=== PATIENT | female | born 1945 | race Two or more races ===

== ENCOUNTER 2024-06-20 15:23 | Emergency (ER) | payer OTHER ==
[~2024-06-20] VITALS: Ht 154.9 cm; Wt 65.9 kg
[2024-06-20 17:28] LABS: Basophils # (auto) 0.1 10 ^3/uL (0-0.2); Basophils % (auto) 0.7 % (0.0-2.0); Eosinophils # (auto) 0.2 10 ^3/uL (0-0.8); Eosinophils % (auto) 2.2 % (0.0-7.0); Hematocrit 41.5 % (36.0-46.0); Lymphocytes # (auto) 1.3 10 ^3/uL (0.4-5.4); Lymphocytes % (auto) 17.1 % (10.0-50.0); Mean Corpuscular Hemoglobin 30.4 pg (28.0-32.0); Mean Corpuscular Hgb Conc. 33.8 g/dL (32.0-36.0); Mean Corpuscular Volume 89.9 fL (80.0-100.0); Monocytes # (auto) 0.5 10 ^3/uL (0-1.3); Monocytes % (auto) 7.2 % (0.0-12.0); Neutrophils # (auto) 5.5 10 ^3/uL (1.6-8.6); Neutrophils % (auto) 72.8 % (37.0-80.0); Platelet Count (auto) 325 10^3/uL (140-450); Red Blood Cells 4.62 10^6/uL (4.0-5.20); Red Cell Distribution Width 14.2 % (11.8-14.3); White Blood Cell 7.6 10^3/uL (4.4-10.8)
[2024-06-20 17:46] LABS: Alanine Aminotransferase 10 U/L (7-40); Alkaline Phosphatase 103 U/L (46-116); Anion Gap 6 (5-15); BUN/Creatinine Ratio 19.1 (10.0-20.0); Blood Urea Nitrogen 18 mg/dL (9-23); Carbon Dioxide 28 mmol/L (20-31); Glucose 83 mg/dL (74-106); Potassium 4.3 mmol/L (3.5-5.1); Sodium 144 mmol/L (136-145)
[2024-06-20 17:47] LABS: Albumin 4.2 g/dL (3.2-4.8); Bilirubin, Total 0.7 mg/dL (0.2-1.0); Total Protein 6.7 g/dL (5.7-8.2)
[2024-06-20 18:13] LABS: Aspartate Aminotransferase 12 U/L (13-40); Chloride 110 mmol/L (98-107)
[2024-06-20 21:13] LABS: Urine Bacteria MANY /hpf (None Seen); Urine Blood TRACE /uL (Negative); Urine Clarity Turbid (Clear); Urine Color Yellow (Yellow); Urine Mucus FEW (None Seen); Urine Protein, UAD TRACE (Negative); Urine Specific Gravity 1.026 (1.001-1.035); Urine Squamous Epithelial Cell FEW /hpf (<5); Urine Urobilinogen 2 mg/dL (Negative); Urine WBC 21 /hpf (0 - 5); Urine pH 5.5 (5.0-9.0)
--- NOTE | 2024-06-20 21:50 | ED.PDOC ---
General HPI Comments 79Y F with PMHx Alzheimer's presents to ED via EMS for chief complaint urinary symptoms. Per EMS, pt was sent by Leticia [facility] for possible UTI. No further information available. VSS upon ED arrival. Chief Complaint: Urinary Time Seen by MD: 16:45 Reviewed notes: Nurses Notes, Fruit Buying Grader Notes, Medications, Allergies Home Meds Active Scripts Cephalexin (KEFLEX CAPSULE) 250 Mg Cp, 1 CAP PO QID for 7 Days, #28 CAP Prov:ELLA OSBORNE PAC 06/20/24 Information Source: Patient, Emergency Med Personnel Mode of Arrival: EMS Brought in by: EMS Severity: Mild Timing: Hours Duration: Since onset Prehospital treatment: Accucheck Onset: Spontaneous Symptoms: Other History of: Other Modifying factors: None associated signs and symptoms: Other Past Medical History PAST MEDICAL HISTORY: Alzheimer Surgical History: Unobtainable SURVEILLANCE CAMERA TECHNICIAN History: No Pertinent SURVEILLANCE CAMERA TECHNICIAN History Family History Family History: Unknown Social History Smoker: Unknown Alcohol: Unknown Drugs: Unknown Lives In: Assisted Care Constitutional: denies: chills, diaphoresis, fatigue, fever, malaise, sweats, weakness, others EENTM: denies: blurred vision, double vision, ear bleeding, ear discharge, ear drainage, ear pain, ear ringing, eye pain, eye redness, hearing loss, mouth pain, mouth swelling, nasal discharge, nose bleeding, nose congestion, nose pain, photophobia, tearing, throat pain, throat swelling, voice changes, others Respiratory: denies: cough, hemoptysis, orthopnea, SOB at rest, shortness of breath, SOB with excertion, stridor, wheezing, others Cardiovascular: denies: chest pain, dizzy spells, diaphoresis, Dyspnea on exertion, edema, irregular heart beat, left arm pain, lightheadedness, palpitations, PND, syncope, others Gastrointestinal: denies: abdomen distended, abdominal pain, blood streaked bowels, constipated, diarrhea, dysphagia, difficulty swallowing, hematemesis, melena, nausea, poor appetite, poor fluid intake, rectal bleeding, rectal pain, vomiting, others Genitourinary: denies: abnormal vagina bleeding, burning, dyspareunia, dysuria, flank pain, frequency, hematuria, incontinence, pain, , vagina discharge, urgency, others Neurological: denies: dizziness, fainting, headache, left sided numbness, left sided weakness, numbness, paresthesia, pre-existing deficit, right sided numbness, right sided weakness, seizure, speech problems, tingling, tremors, weakness, others Musculoskeletal: denies: back pain, gout, joint pain, joint swelling, muscle pain, muscle stiffness, neck pain, others Integumetry: denies: bruises, change in color, change in hair/nails, dryness, laceration, lesions, lumps, rash, wounds, others Allergic/Immunocompromised: denies: Difficulty Healing, Frequent Infections, Hives, Itching, others Hematologic/Lymphatic: denies: anemia, blood clots, easy bleeding, easy bruising, swollen glands, others Endocrine: denies: excessive hunger, excessive sweating, excessive thirst, excessive urination, flushing, intolerance to cold, intolerance to heat, unexplained weight gain, unexplained weight loss, others Psychiatric: denies: anxiety, bipolar disorder, depression, hopeless, panic disorder, schizophrenia, sleepless, suicidal, others Unable to Obtain due to: Dementia All Other Systems: Reviewed and Negative Physical Exam General Appearance: No Apparent Distress (Patient has been as Alzheimer's and is nonverbal.), Normal HEENT: Normal ENT Inspection, Pharynx Normal, TMs Normal Neck: Full Range of Motion, Non-Tender, Normal, Normal Inspection Respiratory: Chest Non-Tender, Lungs Clear, No Accessory Muscle Use, No Respiratory Distress, Normal Breath Sounds Cardiovascular: No Edema, No JVD, No Murmur, No Gallop, Normal Peripheral Pulses, Regular Rate/Rhythm Breast Exam: Deferred Gastrointestinal: No Pulsatile Mass, Normal Bowel Sounds, Soft Genitalia: Deferred Pelvic: Deferred Rectal: Deferred Extremities: Normal capillary refill, No pedal edema Musculoskeletal : Apperance: Normal Neurologic: Motor Weakness, Other (Advanced Alzheimer's) Cerebellar Function: NOT DONE Reflexes: NOT DONE Skin: Dry, Normal Color, Warm Lymphatic: No Adenopathy Was a procedure done? Was a procedure done?: No Differential Diagnosis Kidney stone (Female): Urolithiasis, Other (UTI) Kidney stone (Male): N/A Penile/Scrotal: N/A Urinary Problem (Male): N/A Urinary Problem (Female): UTI X-Ray, Labs, Meds, VS Vital Signs Date Time Temp Pulse Resp B/P (MAP) Pulse Ox O2 Delivery O2 Flow Rate FiO2 06/20/24 21:35 70 16 109/49 (69) 95 06/20/24 20:51 Room Air* 0 21 06/20/24 15:50 98.5 55 16 126/67 (86) 95 Lab Test 06/20/24 20:30 06/20/24 19:52 06/20/24 17:09 Range/Units Urine Color Yellow Yellow Urine Clarity Turbid H Clear Urine pH 5.5 5.0-9.0 Urine Specific [place] 1.026 1.001-1.035 Urine Protein Trace H Negative Urine Ketones 1+ H Negative Urine Blood Trace H Negative /uL Urine Nitrite 2+ H Negative Urine Bilirubin Negative Negative Urine Urobilinogen 2 H Negative mg/dL Urine Leukocyte Esterase 2+ Negative /uL Urine RBC 2 0 - 4 /hpf Urine WBC 21 0 - 5 /hpf Urine Squamous Epithelial Cells Few <5 /hpf Urine Bacteria Many H None Seen /hpf Urine Mucus Few None Seen Urine Glucose Normal Normal mg/dL Troponin I High Sensitivity 7 8 </=34 ng/L White Blood Count 7.6 4.4-10.8 10^3/uL Red Blood Count 4.62 4.0-5.20 10^6/uL Hemoglobin 14.0 12.2-16.2 g/dL Hematocrit 41.5 36.0-46.0 % Mean Corpuscular Volume 89.9 80.0-100.0 fL Mean Corpuscular Hemoglobin 30.4 28.0-32.0 pg Mean Corpuscular Hemoglobin Concent 33.8 32.0-36.0 g/dL Red Cell Distribution Width 14.2 11.8-14.3 % Platelet Count 325 140-450 10^3/uL Mean Platelet Volume 9.2 6.9-10.8 fL Neutrophils (%) (Auto) 72.8 37.0-80.0 % Lymphocytes (%) (Auto) 17.1 10.0-50.0 % Monocytes (%) (Auto) 7.2 0.0-12.0 % Eosinophils (%) (Auto) 2.2 0.0-7.0 % Basophils (%) (Auto) 0.7 0.0-2.0 % Neutrophils # (Auto) 5.5 1.6-8.6 10 ^3/uL Lymphocytes # (Auto) 1.3 0.4-5.4 10 ^3/uL Monocytes # (Auto) 0.5 0-1.3 10 ^3/uL Eosinophils # (Auto) 0.2 0-0.8 10 ^3/uL Basophils # (Auto) 0.1 0-0.2 10 ^3/uL Nucleated Red Blood Cells 0.0 % Sodium Level 144 136-145 mmol/L Potassium Level 4.3 3.5-5.1 mmol/L Chloride Level 110 H 98-107 mmol/L Carbon Dioxide Level 28 20-31 mmol/L Anion Gap 6 5-15 Blood Urea Nitrogen 18 9-23 mg/dL Creatinine 0.94 0.550-1.02 mg/dL Glomerular Filtration Rate Calc 62 >90 mL/min BUN/Creatinine Ratio 19.1 10.0-20.0 Serum Glucose 83 74-106 mg/dL Lactic Acid Level 0.8 0.4-2.0 mmol/L Calcium Level 10.0 8.7-10.4 mg/dL Total Bilirubin 0.7 0.2-1.0 mg/dL Aspartate Amino Transferase (AST) 12 L 13-40 U/L Alanine Aminotransferase (ALT) 10 7-40 U/L Alkaline Phosphatase 103 46-116 U/L B-Type Natriuretic Peptide 115.41 0-100 pg/mL Total Protein 6.7 5.7-8.2 g/dL Albumin 4.2 3.2-4.8 g/dL Current Medications Medications (Trade) Dose Ordered Sig/Luis Antonio Route Start Time Stop Time Status Last Admin Cephalexin (Keflex Capsule) 500 mg ONCE ONCE PO 06/20/24 22:15 06/20/24 22:16 DC 06/20/24 22:29 X-Ray, Labs, Meds, VS Comment All studies performed the ED were evaluated by me personally. Serum studies were unremarkable but urinalysis confirmed a UTI. Patient was given 1st dose of antibiotics prior to discharge back to facility. Advised patient complete antibiotics as directed. Discussed case with [place] distribution sales representative Dr. Aburto. Advised him of laboratory findings. He will follow up with the primary care provider and advised upon the patient's ED visit today. Authorization number [id number]. Time of 1ST Reevaluation: 22:52 Reevaluation 1ST: Improved Consultation: PCP Patient Education/Counseling: Diagnosis, Treatment Family Education/Counseling: Diagnosis, Treatment, No Family Present Departure 1 Departure Time of Disposition: 22:53 Impression: Primary Impression: Urinary tract infection Disposition: 03 LONG-TERM FACILITY Condition: Fair Additional Instructions: Advised patient utilize antibiotics as directed until completion. e-Prescriptions Cephalexin (KEFLEX CAPSULE) 250 Mg Cp 1 CAP PO QID for 7 Days, #28 CAP Prov: ELLA OSBORNE PAC 06/20/24 Discharged With: Self Critical Care Note Critical Care Time?: No Stability Stability form required: No Heart Score Heart Score: Heart Score Response (Comments) Value History N/A 0 EKG N/A 0 Age N/A 0 Risk Factors N/A 0 Troponin N/A 0 Total 0 I personally scribed for ELLA OSBORNE PAC ([email or web address]) on 06/20/24 at 21:50. Electronically submitted by Shelley Jain ([email or web address]). ELLA OSBORNE PAC Jun 20, 2024 21:50
[2024-06-20] MEDS: CEPHALEXIN 250 MG CAP PO ONE (22:29)
[2024-06-20] MEDS ORDERED: CEPH250C PO (22:53)
[2024-06-21 05:23] VITALS: PULSE 68; RESP 18; O2SAT 93
[2024-06-21 07:51] VITALS: BP 150/86; TEMP 98.6
[2024-06-21 07:55] VITALS: PULSE 84; RESP 16; O2SAT 96
[2024-06-22] MEDS ORDERED: LISI10TA34 (22:38)
[2024-06-22] MEDS ORDERED: ESCI1TAB36 (22:38)
[2024-06-22] MEDS ORDERED: TRAZ-227 (22:38)
[2024-06-22] MEDS ORDERED: DONE5TAB80 (22:38)
--- NOTE | 2024-06-23 09:54 | ECG ---
[facility] Test Date: 2024-06-21 Test Time: 15:25:15 Pat Name: ZAIN SMITH Department: ER Room: Gender: F [employer]isher: JOHN : 1945 Requested By: ELLA OSBORNE Order Number: [id number] Reading MD: Measurements Intervals [place] Rate: 60 P: 71 OH: 150 QRS: 73 QRSD: 100 T: 79 QT: 452 QTc: 452 Interpretive Statements Sinus rhythm Low voltage, precordial leads Abnormal R-wave progression, early transition Please click the below link to view image of tracing.
== END 2024-06-21 09:10 | disposition home or self-care (01) ==
LOC: ER 15:23 → EDBD 15:23 → ER 06-21 09:10
DX: N39.0 Urinary tract infection, site not specified (principal); G30.9 Alzheimer's disease, unspecified
CPT/HCPCS: 36415; 80053; 81001; 83605; 83880; 84484; 85025; 93005

== ENCOUNTER 2024-06-21 15:12 | Inpatient (IN) | payer OTHER ==
[~2024-06-21] VITALS: Ht 154.9 cm; Wt 76.6 kg
[~2024-06-21 15:12] MED LIST: CEPH250C PO
--- NOTE | 2024-06-21 16:12 | ED.PDOC ---
History of Present Illness HPI Comments altered mental status per SNF staff Chief Complaint: ALOC Comments pt was discharge this morning for uti. SNF staff felt pt is less oriented than usual. she has a history of dementia. paramedics report pt was more confused on their arrival. BS normal. on arrival here, she is much more alert, similar to yesterday, when they ran on her. pt denies any complaints Time Seen by MD: 15:56 Reviewed Notes: Nurses Notes, Environmental Law Professor Notes, Medications, Allergies Allergies: Coded Allergies: NO KNOWN ALLERGIES (Unverified , 06/21/24) Home Meds Active Scripts Cephalexin (KEFLEX CAPSULE) 250 Mg Cp, 1 CAP PO QID for 7 Days, #28 CAP Prov:ELLA OSBORNE PAC 06/20/24 Information Source: Patient, Emergency Med Personnel Mode of Arrival: EMS Severity: Mild Timing: Hours Duration: Intermittent Past Medical History PAST MEDICAL HISTORY: Alzheimer Surgical History: Unobtainable PATIENT CARE NURSING ASSISTANT History: No Pertinent PATIENT CARE NURSING ASSISTANT History Family History Family History: Unknown Social History Smoker: Unknown Alcohol: Unknown Drugs: Unknown Lives In: Assisted Care Unable to Obtain due to: Dementia Physical Exam General Appearance: No Apparent Distress, Normal, Other (pt appears well, alert, denies all complaints. she knows she is at the hospital, but does not know why) HEENT: Normal ENT Inspection, Pharynx Normal, TMs Normal Neck: Full Range of Motion, Non-Tender, Normal, Normal Inspection Respiratory: Chest Non-Tender, Lungs Clear, No Accessory Muscle Use, No Respiratory Distress, Normal Breath Sounds Cardiovascular: No Edema, No JVD, No Murmur, No Gallop, Normal Peripheral Pulses, Regular Rate/Rhythm Breast Exam: Deferred Gastrointestinal: No Organomegaly, Non Tender, No Pulsatile Mass, Normal Bowel Sounds, Soft Genitalia: Deferred Pelvic: Deferred Rectal: Deferred Extremities: No calf tenderness, Normal capillary refill, Normal inspection, Normal range of motion, Non-tender, No pedal edema Musculoskeletal : Apperance: Normal Neurologic: Alert, system software developer II-XII nml as Tested, No Motor Deficits, Normal Affect, Normal Mood, No Sensory Deficits Cerebellar Function: Normal Reflexes: Normal Skin: Dry, Normal Color, Warm Lymphatic: No Adenopathy Was a procedure done? Was a procedure done?: No Differential Dx Considerations may include: sepsis, hypoglycemia, hypotension, ACS, medication side effects, cva, delirium, electrolyte disorders. cva, intracranial bleed, intracranial mass X-Ray, Labs, Meds, VS Vital Signs Date Time Temp Pulse Resp B/P (MAP) Pulse Ox O2 Delivery O2 Flow Rate FiO2 06/21/24 22:00 98.0 14 113/46 (68) 95 98.0 06/21/24 20:00 64 06/21/24 19:40 98.0 63 14 157/79 (105) 95 98.0 06/21/24 18:52 78 19 146/71 (96) 96 06/21/24 16:54 61 15 96 Room Air* 0 21 06/21/24 16:54 98.0 62 17 128/73 (91) 95 98.0 06/21/24 15:25 60 06/21/24 15:16 98.0 55 16 135/68 (90) 92 Lab Test 06/21/24 16:04 06/21/24 00:00 Range/Units White Blood Count 5.6 # 4.4-10.8 10^3/uL Red Blood Count 4.51 4.0-5.20 10^6/uL Hemoglobin 13.7 12.2-16.2 g/dL Hematocrit 41.0 36.0-46.0 % Mean Corpuscular Volume 90.8 80.0-100.0 fL Mean Corpuscular Hemoglobin 30.3 28.0-32.0 pg Mean Corpuscular Hemoglobin Concent 33.4 32.0-36.0 g/dL Red Cell Distribution Width 14.7 H 11.8-14.3 % Platelet Count 290 140-450 10^3/uL Mean Platelet Volume 9.3 6.9-10.8 fL Neutrophils (%) (Auto) 70.8 37.0-80.0 % Lymphocytes (%) (Auto) 17.1 10.0-50.0 % Monocytes (%) (Auto) 8.0 0.0-12.0 % Eosinophils (%) (Auto) 3.1 0.0-7.0 % Basophils (%) (Auto) 1.0 0.0-2.0 % Neutrophils # (Auto) 3.9 1.6-8.6 10 ^3/uL Lymphocytes # (Auto) 1.0 0.4-5.4 10 ^3/uL Monocytes # (Auto) 0.4 0-1.3 10 ^3/uL Eosinophils # (Auto) 0.2 0-0.8 10 ^3/uL Basophils # (Auto) 0.1 0-0.2 10 ^3/uL Nucleated Red Blood Cells 0.0 % Sodium Level 145 136-145 mmol/L Potassium Level 4.3 3.5-5.1 mmol/L Chloride Level 111 H 98-107 mmol/L Carbon Dioxide Level 27 20-31 mmol/L Anion Gap 7 5-15 Blood Urea Nitrogen 16 9-23 mg/dL Creatinine 0.78 0.550-1.02 mg/dL Glomerular Filtration Rate Calc 77 >90 mL/min BUN/Creatinine Ratio 20.5 H 10.0-20.0 Serum Glucose 81 74-106 mg/dL Lactic Acid Level 0.8 0.4-2.0 mmol/L Calcium Level 10.0 8.7-10.4 mg/dL Total Bilirubin 0.9 0.2-1.0 mg/dL Aspartate Amino Transferase (AST) 15 13-40 U/L Alanine Aminotransferase (ALT) < 9 7-40 U/L Alkaline Phosphatase 96 46-116 U/L Troponin I High Sensitivity 10 </=34 ng/L Total Protein 6.4 5.7-8.2 g/dL Albumin 4.0 3.2-4.8 g/dL Plasma/Serum Blood Alcohol < 3.0 <10 mg/dL Urine Color Light-orange Yellow Urine Clarity Turbid H Clear Urine pH 5.5 5.0-9.0 Urine Specific [place] 1.024 1.001-1.035 Urine Protein Trace H Negative Urine Ketones 2+ H Negative Urine Blood 1+ H Negative /uL Urine Nitrite Negative Negative Urine Bilirubin Negative Negative Urine Urobilinogen 2 H Negative mg/dL Urine Leukocyte Esterase 3+ Negative /uL Urine RBC 21 0 - 4 /hpf Urine WBC 255 0 - 5 /hpf Urine Squamous Epithelial Cells Mod <5 /hpf Urine Bacteria Few H None Seen /hpf Urine Hyaline Casts Few 0 - 2 /lpf Urine Mucus Few None Seen Urine Glucose Normal Normal mg/dL Current Medications Medications (Trade) Dose Ordered Sig/Luis Antonio Route Start Time Stop Time Status Last Admin Haloperidol Lactate (Haldol) 2.5 mg ONCE ONCE IM 06/21/24 17:45 06/21/24 17:46 DC 06/21/24 18:12 Diphenhydramine HCl (Benadryl Injection) 25 mg ONCE ONCE IV 06/21/24 17:45 06/21/24 17:46 DC 06/21/24 18:12 Ceftriaxone Sodium 50 ml @ 100 mls/hr ONCE ONCE IV 06/21/24 18:30 06/21/24 18:59 DC 06/21/24 18:49 Haloperidol Lactate (Haldol) 10 mg ONCE ONCE IM 06/21/24 22:15 06/21/24 22:16 DC 06/21/24 22:23 Time of 1ST Reevaluation: 18:21 Reevaluation 1ST: Improved Patient Education/Counseling: Diagnosis, Treatment, Prognosis, Need For Follow Up Family Education/Counseling: No Family Present Additional Information pt was seen lst night and discharged home this morning with uti. however, she became more confused, so staff called 911. once here, her mentation improved. unfortunately, she became more confused and combative, pulling out her lines. she is now sedated. she does have evidence of an UTi still. with her dementia and fraility, this likely contributed to the acute delirium. she will likely need inpatient treatment. i will endorse care to Dr Boles as we wait for the head ct, then contacting [place] Departure 1 Departure Time of Disposition: 21:58 ([place] [phone] cannot find placement and we can admit the patient to [facility].) Impression: Primary Impression: Altered mental status Qualified Codes: R41.0 - Disorientation, unspecified Additional Impressions: UTI (urinary tract infection) Qualified Codes: N30.00 - Acute cystitis without hematuria Delirium Disposition: ADMITTED INPATIENT Admit to: Med Surg Condition: Serious Discharged With: Self Critical Care Note Critical Care Time?: Yes (55 min-critical care time only) Critical care comment: Due to concerns for patients condition deteriorating, the care required my highest level of attention and readiness to intervene. I assessed the patient, reviewed the medical records, ordered the appropriate tests and treatments, then reassessed for results and responsiveness. I communicated with medical personnel and consultants and formulated a plan of care. Total critical care time excludes any procedures Stability Stability form required: No Heart Score Heart Score: Heart Score Response (Comments) Value History N/A 0 EKG N/A 0 Age N/A 0 Risk Factors N/A 0 Troponin N/A 0 Total 0 ANAHY,HAICHI S MD Jun 21, 2024 16:12 DEBBIE BOLES MD Jun 21, 2024 21:59
[2024-06-21 16:31] LABS: Basophils # (auto) 0.1 10 ^3/uL (0-0.2); Eosinophils # (auto) 0.2 10 ^3/uL (0-0.8); Eosinophils % (auto) 3.1 % (0.0-7.0); Hemoglobin 13.7 g/dL (12.2-16.2); Lymphocytes % (auto) 17.1 % (10.0-50.0); Mean Corpuscular Hemoglobin 30.3 pg (28.0-32.0); Mean Corpuscular Hgb Conc. 33.4 g/dL (32.0-36.0); Mean Corpuscular Volume 90.8 fL (80.0-100.0); Monocytes # (auto) 0.4 10 ^3/uL (0-1.3); Neutrophils # (auto) 3.9 10 ^3/uL (1.6-8.6); Neutrophils % (auto) 70.8 % (37.0-80.0); Platelet Count (auto) 290 10^3/uL (140-450); Red Blood Cells 4.51 10^6/uL (4.0-5.20); Red Cell Distribution Width 14.7 % (11.8-14.3); White Blood Cell 5.6 10^3/uL (4.4-10.8)
[2024-06-21 16:44] LABS: Alkaline Phosphatase 96 U/L (46-116); Anion Gap 7 (5-15); Aspartate Aminotransferase 15 U/L (13-40); BUN/Creatinine Ratio 20.5 (10.0-20.0); Bilirubin, Total 0.9 mg/dL (0.2-1.0); Blood Urea Nitrogen 16 mg/dL (9-23); Carbon Dioxide 27 mmol/L (20-31); Glucose 81 mg/dL (74-106); Potassium 4.3 mmol/L (3.5-5.1); Sodium 145 mmol/L (136-145); Total Protein 6.4 g/dL (5.7-8.2)
[2024-06-21 16:45] LABS: Alanine Aminotransferase < 9 U/L (7-40); Blood Alcohol < 3.0 mg/dL (<10); Chloride 111 mmol/L (98-107)
[2024-06-21 16:47] LABS: Urine Bacteria FEW /hpf (None Seen); Urine Blood 1+ /uL (Negative); Urine Clarity Turbid (Clear); Urine Color Light-Orange (Yellow); Urine Hyaline Cast FEW /lpf (0 - 2); Urine Mucus FEW (None Seen); Urine Protein, UAD TRACE (Negative); Urine Specific Gravity 1.024 (1.001-1.035); Urine Squamous Epithelial Cell MOD /hpf (<5); Urine Urobilinogen 2 mg/dL (Negative); Urine WBC 255 /hpf (0 - 5); Urine pH 5.5 (5.0-9.0)
[2024-06-21 16:54] VITALS: PULSE 61; RESP 15; O2SAT 96
--- NOTE | 2024-06-21 17:46 | DVH ---
CHEST RADIOGRAPH Indication: altered Technique: Single frontal view of the chest was obtained Comparison: None FINDINGS: Lines and Tubes: None Lungs: No focal consolidation. Pleura: No effusion. No pneumothorax. Cardiomediastinal contours: Unremarkable. Uncoiling of the thoracic aorta. Bones: No acute osseous abnormality. IMPRESSION: 1. No acute cardiopulmonary disease. 2. Uncoiling of the thoracic aorta. HS:Y
[2024-06-21] MEDS: diphenhdrAMINE HCL 50 MG/1 ML VL IV ONE (18:12)
[2024-06-21] MEDS: HALOPERIDOL LACTATE 5 MG/ML INJ VIAL IM ONE ×2 (18:12→22:23)
[2024-06-21] MEDS: cefTRIAXone 1GM/50ML D5W 50 ML IV ONE (18:49)
[2024-06-21 19:40] VITALS: PULSE 63; RESP 14; O2SAT 95
--- NOTE | 2024-06-21 20:37 | DVH ---
EXAM: CT HEAD WITHOUT CONTRAST INDICATION: altered TECHNIQUE: CT of the head without intravenous contrast. Radiation Dose Information: CT Dose: CTDI volume is 62.16 mGy. Dose-length product is 4396.93 mGy*cm The dose indicators for CT are the volume Computed Tomography (CT) Dose Index (CTDIvol) and the Dose Length Product (DLP), and are measured in units of mGy and mGy-cm, respectively. These indicators are not patient dose, but values generated from the CT scanner acquisition factors. The report includes radiation exposure data for exposures received during this examination. COMPARISON: None FINDINGS: There is no evidence of acute intracranial hemorrhage, extra-axial collection, mass effect, midline s hift, herniation or hydrocephalus. The ventricles, sulci and cisterns are age appropriate. The juan-white differentiation is intact. Patchy periventricular and subcortical white matter hypoattenuation is nonspecific but may be related to small vessel ischemic disease. The visualized paranasal sinuses and mastoid air cells are clear. The surrounding soft tissues and osseous structures are unremarkable. IMPRESSION: 1. No acute intracranial hemorrhage 2. No CT findings of territorial ischemia. HS:Y
[2024-06-22] MEDS ORDERED: ACETAMINOPHEN 325 MG TAB PO PRN (00:45)
[2024-06-22] MEDS ORDERED: ONDANSETRON HCL 4 MG/2 ML VIAL IV PRN (00:45)
[2024-06-22] MEDS ORDERED: DOCUSATE SOD 100 MG CAP PO PRN (00:45)
[2024-06-22] MEDS ORDERED: HYDROcodone-ACET 5/325MG TAB PO PRN (00:45)
[2024-06-22] MEDS ORDERED: NITROGLYCERIN 0.4 MG SL TAB SL PRN (03:30)
[2024-06-22] MEDS ORDERED: MORPHINE SULFATE INJ 2 MG/ml SYRG IV PRN (03:30)
--- NOTE | 2024-06-22 03:48 | DVHHP2 ---
History of Present Illness Reason for Visit: Altered mental status History of Present Illness The patient is a 79-year-old female with past medical history of Alzheimer presented to [facility] ED for evaluation of altered level of consciousness. Patient was discharged this morning from [facility] to the SNF, but was returned back to our facility due to current patient's confusion state. Patient was seen and evaluated in the ED, laboratory data shows WBC 5.6, platelets 290, sodium 145, potassium 4.3, BUN 16, creatinine 0.78, glucose 81, GFR 77, troponin 10, urinalysis positive for urinary tract infection. Head CT showed no acute intracranial hemorrhage. Patient was started on IV antibiotic regimen Rocephin, please see medication orders section in the computer. On my assessment, patient remains confused, no diaphoresis, no palpitations, no diarrhea, no nausea, no vomiting, no fever, no chills. Patient was admitted for further evaluation and medical management. Past Medical History Alzheimer Past Surgical History Unobtainable Family History Reviewed, noncontributory to the management of this case. Past Social History The patient lives at home, no history of smoking, alcohol or illicit drugs abuse on file. Review of Systems Constitutional: Yes: Weakness; No: Fever, Chills, Sweats, Malaise, Other Eyes: No: Pain, Vision change, Conjunctivae inflammation, Eyelid inflammation, Other, Redness ENT: No: Ear pain, Ear discharge, Nose pain, Nose discharge, Nose congestion, Mouth pain, Mouth swelling, Throat pain, Throat swelling, Other Respiratory: No: Cough, Dry, Shortness of breath, SOB with excertion, Wheezing, Hemoptysis, Pleuritic Pain, Sputum, Wheezing, Other Cardiovascular: No: Chest Pain, Palpitations, Orthopnea, Paroxysmal Noc. Dyspnea, Edema, Lt Headedness, Other Gastrointestinal: No: Nausea, Vomiting, Abdominal Pain, Diarrhea, Constipation, Melena, Hematochezia, Other Genitourinary: No Dysuria, No Frequency, No Incontinence, No Hematuria, No Retention, No Other Musculoskeletal: No: other, neck pain, shoulder pain, arm pain, back pain, hand pain, leg pain, foot pain Skin: No: Rash, Lesions, Jaundice, Bruising, Other Neurological: Other (Altered mental status); No: Weakness, Numbness, Incoordination, Change in speech, Confusion, Seizures Allergies: Coded Allergies: NO KNOWN ALLERGIES (Unverified , 06/21/24) Medications Current Medications Medications Dose Ordered Sig/Luis Antonio Route Start Time Stop Time Status Last Admin Dose Admin Ceftriaxone Sodium 50 ml @ 100 mls/hr DAILY@09 IV 06/22/24 09:00 Sodium Chloride 10 ml Q8HR IV 06/22/24 06:00 Acetaminophen/ Hydrocodone Bitart 1 tab Q4HP PRN PO 06/22/24 00:45 Ondansetron HCl 4 mg Q4HP PRN IV 06/22/24 00:45 Docusate Sodium 100 mg BIDPRN PRN PO 06/22/24 00:45 Acetaminophen 650 mg Q6HP PRN PO 06/22/24 00:45 Exam Vital Signs Vital Signs Date Time Temp Pulse Resp B/P (MAP) Pulse Ox O2 Delivery O2 Flow Rate FiO2 06/22/24 02:03 97.6 60 16 114/65 (81) 95 97.6 06/21/24 19:40 Room Air* 0 21 General Appearance: Alert, Cooperative, No acute distress, Other (Oriented x1) HEENT: Atraumatic, PERRLA, EOMI, Mucous membr. moist/pink Respiratory: Clear to auscultation, Normal air movement Cardiovascular: Regular rate, Normal S1, Normal S2, No murmurs Abdominal: Normal bowel sounds, Soft, No tenderness, No hepatospenomegaly, No masses Extremities: No clubbing, No cyanosis, No edema, Normal pulses, No tenderness/swelling Skin: No rashes, No breakdown, No significant lesion Neuro: Normal speech, Normal tone, Sensation intact, Cranial nerves 3-12 NL, Reflexes 2+, Other (Generalized weakness) Psych/Mental Status: Mental status NL, Mood NL Labs/Xrays Labs Test 06/21/24 16:04 06/21/24 00:00 Range/Units White Blood Count 5.6 # 4.4-10.8 10^3/uL Red Blood Count 4.51 4.0-5.20 10^6/uL Hemoglobin 13.7 12.2-16.2 g/dL Hematocrit 41.0 36.0-46.0 % Mean Corpuscular Volume 90.8 80.0-100.0 fL Mean Corpuscular Hemoglobin 30.3 28.0-32.0 pg Mean Corpuscular Hemoglobin Concent 33.4 32.0-36.0 g/dL Red Cell Distribution Width 14.7 H 11.8-14.3 % Platelet Count 290 140-450 10^3/uL Mean Platelet Volume 9.3 6.9-10.8 fL Neutrophils (%) (Auto) 70.8 37.0-80.0 % Lymphocytes (%) (Auto) 17.1 10.0-50.0 % Monocytes (%) (Auto) 8.0 0.0-12.0 % Eosinophils (%) (Auto) 3.1 0.0-7.0 % Basophils (%) (Auto) 1.0 0.0-2.0 % Neutrophils # (Auto) 3.9 1.6-8.6 10 ^3/uL Lymphocytes # (Auto) 1.0 0.4-5.4 10 ^3/uL Monocytes # (Auto) 0.4 0-1.3 10 ^3/uL Eosinophils # (Auto) 0.2 0-0.8 10 ^3/uL Basophils # (Auto) 0.1 0-0.2 10 ^3/uL Nucleated Red Blood Cells 0.0 % Sodium Level 145 136-145 mmol/L Potassium Level 4.3 3.5-5.1 mmol/L Chloride Level 111 H 98-107 mmol/L Carbon Dioxide Level 27 20-31 mmol/L Anion Gap 7 5-15 Blood Urea Nitrogen 16 9-23 mg/dL Creatinine 0.78 0.550-1.02 mg/dL Glomerular Filtration Rate Calc 77 >90 mL/min BUN/Creatinine Ratio 20.5 H 10.0-20.0 Serum Glucose 81 74-106 mg/dL Lactic Acid Level 0.8 0.4-2.0 mmol/L Calcium Level 10.0 8.7-10.4 mg/dL Total Bilirubin 0.9 0.2-1.0 mg/dL Aspartate Amino Transferase (AST) 15 13-40 U/L Alanine Aminotransferase (ALT) < 9 7-40 U/L Alkaline Phosphatase 96 46-116 U/L Troponin I High Sensitivity 10 </=34 ng/L Total Protein 6.4 5.7-8.2 g/dL Albumin 4.0 3.2-4.8 g/dL Plasma/Serum Blood Alcohol < 3.0 <10 mg/dL Urine Color Light-orange Yellow Urine Clarity Turbid H Clear Urine pH 5.5 5.0-9.0 Urine Specific [place] 1.024 1.001-1.035 Urine Protein Trace H Negative Urine Ketones 2+ H Negative Urine Blood 1+ H Negative /uL Urine Nitrite Negative Negative Urine Bilirubin Negative Negative Urine Urobilinogen 2 H Negative mg/dL Urine Leukocyte Esterase 3+ Negative /uL Urine RBC 21 0 - 4 /hpf Urine WBC 255 0 - 5 /hpf Urine Squamous Epithelial Cells Mod <5 /hpf Urine Bacteria Few H None Seen /hpf Urine Hyaline Casts Few 0 - 2 /lpf Urine Mucus Few None Seen Urine Glucose Normal Normal mg/dL PATIENT: ZAIN SMITH ACCT: [id number] UNIT: [id number] : 1945 LOC: ER ROOM / BED: / AGE / SEX: 79 / F ADM STATUS: REG ER SERVICE 23 ORDERING PHYSICIAN: JUDI HIGGINBOTHAM MD PROCEDURE(s): HWOCT - HEAD WITHOUT CONTRAST REASON: altered ORDER NUMBER(s): [id number], ACCESSION NUMBER(s): [id number] EXAM: CT HEAD WITHOUT CONTRAST INDICATION: altered TECHNIQUE: CT of the head without intravenous contrast. Radiation Dose Information: CT Dose: CTDI volume is 62.16 mGy. Dose-length product is 4396.93 mGy*cm The dose indicators for CT are the volume Computed Tomography (CT) Dose Index (CTDIvol) and the Dose Length Product (DLP), and are measured in units of mGy and mGy-cm, respectively. These indicators are not patient dose, but values gen erated from the CT scanner acquisition factors. The report includes radiation exposure data for exposures received during this examination. COMPARISON: None FINDINGS: There is no evidence of acute intracranial hemorrhage, extra-axial collection, mass effect, midline shift, herniation or hydrocephalus. The ventricles, sulci and cisterns are age appropriate. The juan-white differentiation is intact. Patchy periventricular and subcortical white matter hypoattenuation is nonspecific but may be related to small vessel ischemic disease. The visualized paranasal sinuses and mastoid air cells are clear. The surrounding soft tissues and osseous structures are unremarkable. IMPRESSION: 1. No acute intracranial hemorrhage 2. No CT findings of territorial ischemia. ORDERING PHYSICIAN: JUDI HIGGINBOTHAM MD PROCEDURE(s): CXRP - CHEST PORTABLE REASON: altered ORDER NUMBER(s): [id number], ACCESSION NUMBER(s): [id number] CHEST RADIOGRAPH Indication: altered Technique: Single frontal view of the chest was obtained Comparison: None FINDINGS: Lines and Tubes: None Lungs: No focal consolidation. Pleura: No effusion. No pneumothorax. Cardiomediastinal contours: Unremarkable. Uncoiling of the thoracic aorta. Bones: No acute osseous abnormality. IMPRESSION: 1. No acute cardiopulmonary disease. 2. Uncoiling of the thoracic aorta. Assessment/Plan Assessment/Plan Altered mental status Delirium Disorientation, unspecified UTI (urinary tract infection) Acute cystitis without hematuria Plan 1. Admit to telemetry unit 2. Breathing treatment 3. Pain control management 4. IV antibiotic management 5. Management of fluids and electrolytes 6. Consultation for hospitalist 7. Diagnostic test head CT 8. DVT prophylaxis-on SCDs 9. Repeat labs CBC, CMP in a.m. 10. Home medication reviewed and reconciled 11. Continue with current medical management 12. Treatment plan discussed with patient and RN. Patient verbalized understanding. Plan discussed with: Patient, Other (RN) My Orders Orders - NICCI MAZARIEGOS DNP Procedure Category Date Status Time Complete Blood Count LAB 06/22/24 Logged 04:00 Comprehensive LAB 06/22/24 Logged Metabolic Panel 04:00 Ceftriaxone 1gm/50ml PHA 06/22/24 In Process D5w (Rocephin) 09:00 Allergies ADITI 06/22/24 In Process 00:42 Code Status CODE 06/22/24 Transmitted 00:42 Sodium Chloride Lock PHA 06/22/24 In Process (Saline Lock Ns) 06:00 Oxygen Per Hour RT 06/22/24 Transmitted 00:42 Hydrocodone-Acet PHA 06/22/24 In Process 5/325mg Tab ([place] 00:45 Ondansetron Hcl PHA 06/22/24 In Process (Zofran) 00:45 Docusate Sodium PHA 06/22/24 In Process Capsule (Colace 00:45 Fall Risk Precautions ADITI 06/22/[address] 00:42 Complete Blood Count LAB 06/23/24 Verified 04:00 Comprehensive LAB 06/23/24 Verified Metabolic Panel 04:00 Condition: Serious ADITI 06/22/24 In Process 00:42 Acetaminophen Tablet PHA 06/22/24 In Process (Tylenol Tablet) 00:45 Sequential ADITI 06/22/24 In Process Compression Device * Business Services Representative CONS 06/22/24 Transmitted Consult Admit ADMIT 06/22/24 Verified 03:[address] [facility] 06/22/24 Verified Sublingual (Ntrostat 03:[address] [facility] 06/22/24 Verified Injection 03:30 Notify Of Changes [facility] 06/22/24 Verified From Base 03:22 Lead Radiologic Technologist For [facility] 06/22/24 Verified 24 Hours 03:22 Emergency Dysrhythmia [facility] 06/22/24 Verified Protocol 03:22 Rhythm Strips Once [facility] 06/22/24 Verified Every Shift 03:22 Oxygen By Nasal RT 06/22/24 Verified Cannula 03:22 Problem List: (1) Altered mental status (2) Delirium (3) Disorientation, unspecified (4) UTI (urinary tract infection) (5) Acute cystitis without hematuria Date of Service: Jun 22, 2024 Billing Provider: NICCI MAZARIEGOS DNP Common Visit Codes: [id number] INP/OBS CARE (HIGH) NICCI MAZARIEGOS DNP Jun 22, 2024 03:48
[2024-06-22] MEDS: SODIUM CHLOR 0.9% PF (SALINE LOCK) 10ML VIAL/SYR IV SCH (06:13)
[2024-06-22 06:35] LABS: Basophils # (auto) 0 10 ^3/uL (0-0.2); Basophils % (auto) 0.6 % (0.0-2.0); Eosinophils # (auto) 0.3 10 ^3/uL (0-0.8); Eosinophils % (auto) 4.6 % (0.0-7.0); Hematocrit 38.8 % (36.0-46.0); Hemoglobin 12.9 g/dL (12.2-16.2); Lymphocytes % (auto) 17.5 % (10.0-50.0); Mean Corpuscular Hgb Conc. 33.3 g/dL (32.0-36.0); Mean Corpuscular Volume 90.1 fL (80.0-100.0); Monocytes # (auto) 0.6 10 ^3/uL (0-1.3); Monocytes % (auto) 10.5 % (0.0-12.0); Neutrophils # (auto) 3.8 10 ^3/uL (1.6-8.6); Neutrophils % (auto) 66.8 % (37.0-80.0); Nucleated Red Blood Cells % 0.1 %; Platelet Count (auto) 279 10^3/uL (140-450); Red Blood Cells 4.31 10^6/uL (4.0-5.20); Red Cell Distribution Width 14.7 % (11.8-14.3); White Blood Cell 5.7 10^3/uL (4.4-10.8)
[2024-06-22 06:42] LABS: Albumin 3.5 g/dL (3.2-4.8); Alkaline Phosphatase 86 U/L (46-116); Anion Gap 6 (5-15); BUN/Creatinine Ratio 16.3 (10.0-20.0); Bilirubin, Total 0.7 mg/dL (0.2-1.0); Blood Urea Nitrogen 13 mg/dL (9-23); Calcium 9.5 mg/dL (8.7-10.4); Carbon Dioxide 28 mmol/L (20-31); Potassium 3.6 mmol/L (3.5-5.1)
[2024-06-22 06:51] LABS: Chloride 114 mmol/L (98-107); Glucose 112 mg/dL (74-106); Sodium 148 mmol/L (136-145)
[2024-06-22 06:52] LABS: Alanine Aminotransferase < 9 U/L (7-40); Aspartate Aminotransferase 10 U/L (13-40)
[2024-06-22 08:19] VITALS: O2SAT 100
[2024-06-22] MEDS: cefTRIAXone 1GM/50ML D5W 50 ML IV SCH (09:30)
--- NOTE | 2024-06-22 11:49 | DVHINCON2 ---
Date Seen: Jun 22, 2024 Referring Physician LYLE Rincon Reason for Consultation Bradycardia History of Present Illness This is a 79-year-old female who presented to the emergency room via EMS from [facility] with a chief complaint of an altered level of consciousness. At time of assessment, the patient was found somnolent and withdrawn. Information obtained from records which state the patient was discharged from the ED with a diagnosis of UTI and Rx Keflex on 06/20/24. Upon arrival to the aforementioned facility she was found to be with worsening mentation. Cardiology consulted in the setting of bradycardic events with a heart rate as low as 38 beats per han te. Twelve lead electrocardiograms, cardiac rhythm strips, and environmental monitoring specialist reviewed without any atrioventricular blocks identified neither sinus pauses. It was noted the patient's heart rate to improve to the 60s-70s bpm upon briefly awakening during assessment. Home medications reviewed without any AV tye blocking agents. Significant medical history includes Alzheimer's dementia, hypertension, and depression. Past Medical History Past medical history reviewed. No other significant than mentioned above. Past Surgical History Unknown past medical history. Family History Unknown family history. Social History Unknown social history. Allergies: Coded Allergies: NO KNOWN ALLERGIES (Unverified , 06/21/24) Home Meds Active Scripts Cephalexin (KEFLEX CAPSULE) 250 Mg Cp, 1 CAP PO QID for 7 Days, #28 CAP Prov:ELLA OSBORNE PAC 06/20/24 Home Meds Home medications reviewed. Current Medications Current Medications Medications (Trade) Dose Ordered Sig/Luis Antonio Route PRN Reason Start Time Stop Time Status Last Admin Ceftriaxone Sodium 50 ml @ 100 mls/hr DAILY@09 IV 06/22/24 09:00 06/22/24 09:30 Sodium Chloride (Saline Lock Ns) 10 ml Q8HR IV 06/22/24 06:00 06/22/24 06:13 Acetaminophen/ Hydrocodone Bitart ([place] 5/325MG Tab) 1 tab Q4HP PRN PO MODERATE PAIN (4-6 PAIN SCALE) 06/22/24 00:45 Ondansetron HCl (Zofran) 4 mg Q4HP PRN IV NAUSEA / VOMITING 06/22/24 00:45 Docusate Sodium (Colace Capsule) 100 mg BIDPRN PRN PO FOR CONSTIPATION 06/22/24 00:45 Acetaminophen (Tylenol Tablet) 650 mg Q6HP PRN PO PAIN SCALE 1-3 OR TEMP>100.4 06/22/24 00:45 Nitroglycerin (Ntrostat Sublingual) 0.4 mg Q5MINP PRN SL FOR CHEST PAIN 06/22/24 03:30 Morphine Sulfate 2 mg Q30M PRN IV FOR CHEST PAIN 06/22/24 03:30 Review of Systems Constitutional: No symptom reported Ears, Nose, & Throat: No symptom reported Eyes: No symptom reported Neurological: ALOC Pulmonary/Respiratory: No symptom reported Cardiovascular: No symptom reported Gastrointestinal: No symptom reported Genitourinary: No symptom reported Musculoskeletal: No symptom reported Skin: No symptom reported Psychiatric: No symptom reported Endocrine: No symptom reported Hemotologic/Lymphatic: No symptom reported Vital Signs Vital Signs Date Time Temp Pulse Resp B/P (MAP) Pulse Ox O2 Delivery O2 Flow Rate FiO2 06/22/24 10:00 43 16 114/67 (83) 100 06/22/24 08:19 Nasal Cannula* 2 28 06/22/24 08:00 96.5 96.5 Physical Exam General Appearance: Withdrawn. Somnolent. ALOC Head Exam: Normal inspection Neck Exam: Normal inspection. Non-tender. Normal alignment Pulmonary/Respiratory: Clear bilateral breath sounds Cardiovascular/Chest: Regular rate and rhythm. S1, S2. Sinus rhythm. No murmurs. No JVD. Peripheral Pulses: 2+ Radial (R). 2+ Radial (L). 2+ Pedal (R). 2+ Pedal (L) Abdominal Exam: Normal bowel sounds. Soft. Ankle Exam: Negative ankle edema Lower extremities: Negative lower extremity edema Neuro/Mental Status: ALOC Thoughts/Psych: Unable to assess at this time Appearance: In no acute distress Skin Exam: Normal inspection. Normal color. Warm. Dry Labs/Diagnostic Data Labs Test 06/22/24 05:50 06/21/24 16:04 06/21/24 00:00 Range/Units White Blood Count 5.7 4.4-10.8 10^3/uL Red Blood Count 4.31 4.0-5.20 10^6/uL Hemoglobin 12.9 12.2-16.2 g/dL Hematocrit 38.8 36.0-46.0 % Mean Corpuscular Volume 90.1 80.0-100.0 fL Mean Corpuscular Hemoglobin 30.0 28.0-32.0 pg Mean Corpuscular Hemoglobin Concent 33.3 32.0-36.0 g/dL Red Cell Distribution Width 14.7 H 11.8-14.3 % Platelet Count 279 140-450 10^3/uL Mean Platelet Volume 9.2 6.9-10.8 fL Neutrophils (%) (Auto) 66.8 37.0-80.0 % Lymphocytes (%) (Auto) 17.5 10.0-50.0 % Monocytes (%) (Auto) 10.5 0.0-12.0 % Eosinophils (%) (Auto) 4.6 0.0-7.0 % Basophils (%) (Auto) 0.6 0.0-2.0 % Neutrophils # (Auto) 3.8 1.6-8.6 10 ^3/uL Lymphocytes # (Auto) 1.0 0.4-5.4 10 ^3/uL Monocytes # (Auto) 0.6 0-1.3 10 ^3/uL Eosinophils # (Auto) 0.3 0-0.8 10 ^3/uL Basophils # (Auto) 0 0-0.2 10 ^3/uL Nucleated Red Blood Cells 0.1 % Sodium Level 148 H 136-145 mmol/L Potassium Level 3.6 3.5-5.1 mmol/L Chloride Level 114 H 98-107 mmol/L Carbon Dioxide Level 28 20-31 mmol/L Anion Gap 6 5-15 Blood Urea Nitrogen 13 9-23 mg/dL Creatinine 0.80 0.550-1.02 mg/dL Glomerular Filtration Rate Calc 75 >90 mL/min BUN/Creatinine Ratio 16.3 10.0-20.0 Serum Glucose 112 H 74-106 mg/dL Calcium Level 9.5 8.7-10.4 mg/dL Magnesium Level 2.1 1.6-2.6 mg/dL Total Bilirubin 0.7 0.2-1.0 mg/dL Aspartate Amino Transferase (AST) 10 L 13-40 U/L Alanine Aminotransferase (ALT) < 9 7-40 U/L Alkaline Phosphatase 86 46-116 U/L Total Protein 6.0 5.7-8.2 g/dL Albumin 3.5 3.2-4.8 g/dL Thyroid Stimulating Hormone (TSH) 1.42 0.55-4.78 uIU/mL Lactic Acid Level 0.8 0.4-2.0 mmol/L Troponin I High Sensitivity 10 </=34 ng/L Plasma/Serum Blood Alcohol < 3.0 <10 mg/dL Urine Color Light-orange Yellow Urine Clarity Turbid H Clear Urine pH 5.5 5.0-9.0 Urine Specific [place] 1.024 1.001-1.035 Urine Protein Trace H Negative Urine Ketones 2+ H Negative Urine Blood 1+ H Negative /uL Urine Nitrite Negative Negative Urine Bilirubin Negative Negative Urine Urobilinogen 2 H Negative mg/dL Urine Leukocyte Esterase 3+ Negative /uL Urine RBC 21 0 - 4 /hpf Urine WBC 255 0 - 5 /hpf Urine Squamous Epithelial Cells Mod <5 /hpf Urine Bacteria Few H None Seen /hpf Urine Hyaline Casts Few 0 - 2 /lpf Urine Mucus Few None Seen Urine Glucose Normal Normal mg/dL Microbiology Date/Time Source Procedure Growth Status 06/21/24 00:00 Urine - [place] Urine Culture - Preliminary Resulted Assessment Sinus bradycardia Hypertension Alzheimer's dementia UTI Plan/Recommendation (Dr. Colón) The patient presents with a sinus bradycardia rhythm at rest with heart rate improving upon awakening. Also suspected for hypoxia induced bradycardia while asleep for which the patient can benefit from a sleep study and/or CPAP HS. There were no low-degree or high-degree atrioventricular blocks identified neither sinus pauses present. Avoid AV tye blocking agents for the treatment of hypertension. Consider an outpatient event monitor if deemed necessary. In the setting of an unremarkable echocardiogram, there is no further cardiac workup indicated at this time. Thank you for allowing us to participate in this patient's care. Please call if you have any questions or concerns. This medical document was created using an electronic medical record system with voice recognition software and computerized dictation system. Although this document has been carefully reviewed, there might still be some phonetic and typographical errors. Occasional wrong-word or ``sound-alike substitutions may have occurred due to the inherent limitations of voice recognition software. These areas are purely typographical due to imperfections of the software programs and do not reflect any compromise in the patient's medical care. Please read the chart carefully and recognize, using context, where these substitutions have occurred. Plan discussed with: Other NYHA Physical activity limitations: NA Date of Service: Jun 22, 2024 Billing Provider: HELLER,RUTH TWISTER OPERATOR Cardiology Common Codes: [id number] INP/OBS CARE (High) RUTH HELLER TWISTER OPERATOR Jun 22, 2024 11:49
--- NOTE | 2024-06-22 11:51 | DVHPNRES ---
Progress Note Date Seen: Jun 22, 2024 Resident Creating Document: LIZZETTE ARIAS RESIDENT Has the PT tested + for MRSA If YES, has PT been informed?: No Medical Necessity Reason Pt with a Central, PICC or Fol: No Medical Necessity Reason UTI Subjective Review of Systems Patient is altered. Called family for information. No one responded. Therefore, I left a message. In the interim, I received information from the nurse and read chart report The patient is a 79-year-old female with past medical history of Alzheimer who presented to [facility] ED for evaluation of increased altered level of consciousness. Patient was seen on 06/20/2024 for UTI and discharge to [facility] on . Her son brought her back todaydue to increased confusion. Patient is confused and not communicating and unable to answer any question on review of systems. Vitals shows HR: 72-40, BP: 114/67, on 2L of oxygen via the nasal canula. Laboratory data shows WBC 5.6, hgb: 12.9, platelets 290, sodium 148, potassium 4.3, BUN 16, creatinine 0.78, glucose 81, GFR 77, troponin 10, urinalysis positive for urinary tract infection. Head CT showed no acute intracranial hemorrhage. Patient was admitted for further evaluation and medical management. Review of system Unable to obtain as patient is confused Objective vital signs Vital Sign Date Time Temp Pulse Resp B/P (MAP) Pulse Ox O2 Delivery O2 Flow Rate FiO2 06/22/24 10:00 43 16 114/67 (83) 100 06/22/24 08:19 Nasal Cannula* 2 28 06/22/24 08:00 96.5 96.5 medications Current Medications Medications Dose Ordered Sig/Luis Antonio Route Start Time Stop Time Status Last Admin Dose Admin Ceftriaxone Sodium 50 ml @ 100 mls/hr DAILY@09 IV 06/22/24 09:00 06/22/24 09:30 100 MLS/HR Sodium Chloride 10 ml Q8HR IV 06/22/24 06:00 06/22/24 06:13 10 ML Acetaminophen/ Hydrocodone Bitart 1 tab Q4HP PRN PO 06/22/24 00:45 Ondansetron HCl 4 mg Q4HP PRN IV 06/22/24 00:45 Docusate Sodium 100 mg BIDPRN PRN PO 06/22/24 00:45 Acetaminophen 650 mg Q6HP PRN PO 06/22/24 00:45 Nitroglycerin 0.4 mg Q5MINP PRN SL 06/22/24 03:30 Morphine Sulfate 2 mg Q30M PRN IV 06/22/24 03:30 Sodium Chloride 1,000 ml @ 100 mls/hr Q10H IV 06/22/24 11:30 Examination General Appearance: Altered HEENT: Atraumatic, PERRLA, EOMI, Mucous membrane moist/pink Respiratory: Clear to auscultation, Normal air movement Cardiovascular: Bradycardic, Normal S1, Normal S2, No murmurs, no chest wall tenderness Abdominal: NO distention, no tenderness, bowel sounds present, no scars noted Extremities: No clubbing, No cyanosis, No edema, Normal pulses, No tenderness/swelling Skin: No rashes, No breakdown, No significant lesion Neuro: Defered Psych/Mental Status: Alzheimer laboratory and microbiology Laboratory Tests 06/22/24 05:50 Test 06/22/24 05:50 Range/Units Serum Glucose 112 H 74-106 mg/dL Microbiology Date/Time Source Procedure Growth Status 06/21/24 00:00 Urine - [place] Urine Culture - Preliminary Resulted Problem List/Assessment/Plan Problem List/Assessment/Plan Assessment Urinary tract infection Metabolic encephalopathy Bradycardia Alzheimer's Hypernatremia plan: Continue ceftriaxone for UTI Adequate hydration Monitor heart rate closely Plan to discharge back to [facility] when patient is stable Code status: Full code Goal of care discussed for more than 35 minute Case and plan discussed with Plan discussed with: Other My Orders My Orders Orders - LIZZETTE ARIAS Procedure Category Date Status Time Sodium Chloride 0.9% PHA 06/22/24 In Process 11:30 Date of Service: Jun 22, 2024 Billing Provider: CHANCE HUDDLESTON MD Common Visit Codes: [id number] INP/OBS CARE(HIGH) LIZZETTE ARIAS Jun 22, 2024 11:51 CHANCE HUDDLESTON MD Jun 22, 2024 20:08
[2024-06-22] MEDS: SODIUM CHLORIDE 0.9% 1,000 ML IV SCH (12:11)
--- NOTE | 2024-06-22 13:05 | DVHSR ---
APPROVED REPORT EXAM: LIMITED Two-dimensional and M-mode echocardiogram with Doppler and color Doppler. Blood Pressure: 91/58 mmHg INDICATION Bradycardia RISK FACTORS Height: 5' 1", Weight: 130 DIMENSIONS LVDd5.2 (3.8-5.7cm)LA (2D)4.0 (1.9-4.0cm)Aortic Root3.6 (2.0-3.7cm) LVDs3.5 (2.5-4.0cm)LA (MM) (1.9-4.0cm)Aortic Cusp Exc1.7 (1.5-2.0cm) EF (%) 60.0 (55-70%)Rt. Atrium4.0 (1.9-4.0cm)Asc. Aorta cm IVSd1.1 (0.7-1.1cm)RV (D) (1.8-2.4cm) PWd1.1 (0.7-1.1cm) Mitral Valve MitralMitral Stenosis E wave0.80m/sMV Mean GR.mmHg A wave0.90m/sMV Peak GR.mmHg E/A ratio0.92D MVAcm2 Aortic Valve Aortic ValveAortic Stenosis V10.80m/Sanjay Mean GR.2mmHg V21.00m/Sanjay Peak GR.4mmHg LVOT Diameter2.4 (1.8-2.4cm)Doppler AVA3.62cm2 AI P /2 Ahop254.99ms Other Information Quality : Technically LimitedRhythm : Technically limited study due to patient ALOC and moving. Conclusion limited study lvef 55% by visual estimate mild LVH small LV cavity noted normal rv function left atrium enlarged moderate no severe valve abnormalities noted
[2024-06-22 19:40] VITALS: PULSE 63; RESP 12; O2SAT 96
[2024-06-22 22:00] VITALS: BP 127/60; PULSE 56; RESP 19; TEMP 98.5; O2SAT 96
[2024-06-22 22:38] VITALS: BP 127/60; PULSE 56; RESP 16; TEMP 95.8; O2SAT 96
[2024-06-22] MEDS ORDERED: LISI10TA34 (22:38)
[2024-06-22] MEDS ORDERED: ESCI1TAB36 (22:38)
[2024-06-22] MEDS ORDERED: TRAZ-227 (22:38)
[2024-06-22] MEDS ORDERED: DONE5TAB80 (22:38)
[2024-06-23] VITALS (8 sets, daily range): BP systolic 112–154; BP diastolic 53–79; PULSE 51–77; RESP 18–19; TEMP 97.7–98.5; O2SAT 94–100
[2024-06-23 08:16] LABS: Basophils # (auto) 0.1 10 ^3/uL (0-0.2); Basophils % (auto) 1.8 % (0.0-2.0); Eosinophils # (auto) 0.3 10 ^3/uL (0-0.8); Eosinophils % (auto) 4.6 % (0.0-7.0); Hematocrit 39.5 % (36.0-46.0); Hemoglobin 13.1 g/dL (12.2-16.2); Lymphocytes # (auto) 0.9 10 ^3/uL (0.4-5.4); Lymphocytes % (auto) 13.7 % (10.0-50.0); Monocytes # (auto) 0.5 10 ^3/uL (0-1.3); Monocytes % (auto) 8.7 % (0.0-12.0); Neutrophils # (auto) 4.4 10 ^3/uL (1.6-8.6); Neutrophils % (auto) 71.2 % (37.0-80.0); Platelet Count (auto) 293 10^3/uL (140-450); Red Blood Cells 4.35 10^6/uL (4.0-5.20); Red Cell Distribution Width 14.9 % (11.8-14.3); White Blood Cell 6.2 10^3/uL (4.4-10.8)
[2024-06-23 08:22] LABS: Albumin 3.7 g/dL (3.2-4.8); Alkaline Phosphatase 86 U/L (46-116); Calcium 9.3 mg/dL (8.7-10.4); Carbon Dioxide 27 mmol/L (20-31); Glucose 85 mg/dL (74-106)
[2024-06-23 08:23] LABS: Anion Gap 7 (5-15); BUN/Creatinine Ratio 11.1 (10.0-20.0); Bilirubin, Total 0.7 mg/dL (0.2-1.0); Total Protein 6.1 g/dL (5.7-8.2)
[2024-06-23 08:24] LABS: Sodium 147 mmol/L (136-145)
[2024-06-23 08:25] LABS: Alanine Aminotransferase < 9 U/L (7-40); Aspartate Aminotransferase 11 U/L (13-40); Blood Urea Nitrogen 8 mg/dL (9-23); Chloride 113 mmol/L (98-107); Potassium 3.2 mmol/L (3.5-5.1)
--- NOTE | 2024-06-23 09:40 | ECG ---
[facility] Test Date: 2024-06-21 Test Time: 15:24:31 Pat Name: ZAIN SMITH [facility] Gender: F Library Associate: JOHN : 1945 Requested By: LILLIE MOSQUERA Order Number: [id number] Reading MD: Willian Paniagua Measurements Intervals [place] Rate: 61 P: 75 [place]: 161 QRS: 71 QRSD: 84 T: 60 QT: 458 QTc: 462 Interpretive Statements Sinus rhythm Low voltage, precordial leads Abnormal R-wave progression, early transition Electronically Signed On 06-26-2024 15:03:35 PST by Willian Paniagua Please click the below link to view image of tracing.
[2024-06-23] MEDS ORDERED: SODIUM CHLORIDE 0.9% 1,000 ML IV SCH (10:30)
[2024-06-23] MEDS: POTASSIUM EFFERVESENT TAB 25 MEQ PO ONE (13:14)
[2024-06-23] MEDS: SOD CHL 0.45% 1,000 ML IV SCH (13:15)
--- NOTE | 2024-06-23 16:10 | DVHPNRES ---
Progress Note Date Seen: Jun 23, 2024 Resident Creating Document: LIZZETTE ARIAS RESIDENT Has the PT tested + for MRSA If YES, has PT been informed?: No Medical Necessity Reason Pt with a Central, PICC or Fol: No Medical Necessity Reason Altered, improving Subjective Review of Systems The patient is a 79-year-old female with past medical history of Alzheimer who presented to [facility] ED for evaluation of increased altered level of consciousness. Patient was seen on 06/20/2024 for UTI and discharge to [facility] ([facility]) on . Her son brought her back todaydue to increased confusion. Patient is confused and not communicating and unable to answer any question on review of systems. Vitals shows HR: 72-40, BP: 114/67, on 2L of oxygen via the nasal canula. Laboratory data shows WBC 5.6, hgb: 12.9, platelets 290, sodium 148, potassium 4.3, BUN 16, creatinine 0.78, glucose 81, GFR 77, troponin 10, urinalysis positive for urinary tract infection. Head CT showed no acute intracranial hemorrhage. Patient was admitted for further evaluation and medical management. PN 06/23/2024: Patient is seen and examined today. She seems more conversational she is eating by herself she does not seem confused as he was yesterday. Vitals were stable she is known to have bradycardia heart rate today is hovering around 57. Patient's lab values today showed sodium was 147, K: 3.2 otherwise unremarkable. Patient not stable for transfer or discharge. We will call manage the electrolyte abnormalities and also put patient on PT prior to discharge. Will give her 1/2 normal saline. I called her son to give him on [phone] to him an updated on his mother's status. No one answered the call and no voicemails set up to leave a message. Objective vital signs Vital Sign Date Time Temp Pulse Resp B/P (MAP) Pulse Ox O2 Delivery O2 Flow Rate FiO2 06/23/24 08:00 59 06/23/24 08:00 19 Room Air* 0 21 06/23/24 05:00 98.3 154/75 (101) 97 98.3 Total Intake and Output 06/22/24 06/22/24 06/23/24 15:00 23:00 07:00 Intake Total 250 ml 500 ml 0 ml Output Total 600 ml Balance 250 ml 500 ml -600 ml medications Current Medications Medications Dose Ordered Sig/Luis Antonio Route Start Time Stop Time Status Last Admin Dose Admin Ceftriaxone Sodium 50 ml @ 100 mls/hr DAILY@09 IV 06/22/24 09:00 06/23/24 09:26 100 MLS/HR Sodium Chloride 10 ml Q8HR IV 06/22/24 06:00 06/23/24 09:34 10 ML Acetaminophen/ Hydrocodone Bitart 1 tab Q4HP PRN PO 06/22/24 00:45 Ondansetron HCl 4 mg Q4HP PRN IV 06/22/24 00:45 Docusate Sodium 100 mg BIDPRN PRN PO 06/22/24 00:45 Acetaminophen 650 mg Q6HP PRN PO 06/22/24 00:45 Nitroglycerin 0.4 mg Q5MINP PRN SL 06/22/24 03:30 Morphine Sulfate 2 mg Q30M PRN IV 06/22/24 03:30 Sodium Chloride 1,000 ml @ 100 mls/hr Q10H IV 06/23/24 13:15 Examination General Appearance:Alert, but not place HEENT: Atraumatic, PERRLA, EOMI, Mucous membrane moist/pink Respiratory: Clear to auscultation, Normal air movement Cardiovascular: Bradycardic, Normal S1, Normal S2, No murmurs, no chest wall tenderness Abdominal: NO distention, no tenderness, bowel sounds present, no scars noted Extremities: No clubbing, No cyanosis, No edema, Normal pulses, No tenderness/swelling Skin: No rashes, No breakdown, No significant lesion Neuro: Deferred Psych/Mental Status: Alzheimer laboratory and microbiology Laboratory Tests 06/23/24 06:51 Test 06/23/24 06:51 Range/Units Serum Glucose 85 74-106 mg/dL Microbiology Date/Time Source Procedure Growth Status 06/23/24 03:11 Nose MRSA Screen - Final Complete 06/21/24 16:12 Blood Blood Culture - Preliminary NO GROWTH AFTER 24 HOURS OF INCUBATION. Resulted 06/21/24 00:00 Urine - [place] Urine Culture - Preliminary Resulted Problem List/Assessment/Plan Problem List/Assessment/Plan Assessment Urinary tract infection Metabolic encephalopathy Bradycardia Alzheimer's Hypernatremia plan: Continue ceftriaxone for UTI Adequate hydration 1/2 NS 100ml/hr Monitor heart rate closely Plan to discharge back to [facility] when patient is stable Code status: Full code Goal of care discussed for more than 35 minute Case and plan discussed with Dr. Morgan Plan discussed with: Patient My Orders My Orders Orders - LIZZETTE ARIAS Procedure Category Date Status Time Sod Chl 0.45% (Sodium PHA 06/23/24 In Process Chloride 0.45% Via 13:15 Date of Service: Jun 23, 2024 Billing Provider: IOANA MORGAN MD Common Visit Codes: [id number] INP/OBS CARE(HIGH) LIZZETTE ARIAS Jun 23, 2024 16:10 IOANA MORGAN MD Jun 23, 2024 22:07
[2024-06-24] VITALS (10 sets, daily range): BP systolic 115–165; BP diastolic 63–99; PULSE 53–83; RESP 17–20; TEMP 96.2–98.6; O2SAT 95–98
[2024-06-24 06:11] LABS: Potassium 3.7 mmol/L (3.5-5.1); Sodium 141 mmol/L (136-145)
[2024-06-24 06:12] LABS: Anion Gap 5 (5-15); Calcium 8.7 mg/dL (8.7-10.4); Carbon Dioxide 23 mmol/L (20-31)
[2024-06-24 06:18] LABS: BUN/Creatinine Ratio 7.7 (10.0-20.0); Blood Urea Nitrogen 5 mg/dL (9-23); Chloride 113 mmol/L (98-107); Glucose 89 mg/dL (74-106)
--- NOTE | 2024-06-24 16:28 | DVHDSRES ---
Discharge Summary Date of Admission Resident Creating Document: LIZZETTE ARIAS RESIDENT Jun 22, 2024 at 03:22 Date of Discharge: Jun 24, 2024 Admitting Diagnosis Altered mental status Labs/Diagnostic Data: PATIENT: ZAIN SMITH ACCT: [id number] UNIT: [id number] : 1945 LOC: ER ROOM / BED: / AGE / SEX: 79 / F ADM STATUS: REG ER SERVICE 1824 ORDERING PHYSICIAN: JUDI HIGGINBOTHAM MD PROCEDURE(s): HWOCT - HEAD WITHOUT CONTRAST REASON: altered ORDER NUMBER(s): [id number], ACCESSION NUMBER(s): [id number] EXAM: CT HEAD WITHOUT CONTRAST INDICATION: altered TECHNIQUE: CT of the head without intravenous contrast. Radiation Dose Information: CT Dose: CTDI volume is 62.16 mGy. Dose-length product is 4396.93 mGy*cm The dose indicators for CT are the volume Computed Tomography (CT) Dose Index (CTDIvol) and the Dose Length Product (DLP), and are measured in units of mGy and mGy-cm, respectively. These indicators are not patient dose, but values generated from the CT scanner acquisition factors. The report includes radiation exposure data for exposures received during this examination. COMPARISON: None FINDINGS: There is no evidence of acute intracranial hemorrhage, extra-axial collection, mass effect, midline shift, herniation or hydrocephalus. The ventricles, sulci and cisterns are age appropriate. The juan-white differentiation is intact. Patchy periventricular and subcortical white matter hypoattenuation is nonspecific but may be related to small vessel ischemic disease. The visualized paranasal sinuses and mastoid air cells are clear. The surrounding soft tissues and osseous structures are unremarkable. IMPRESSION: 1. No acute intracranial hemorrhage 2. No CT findings of territorial ischemia. HS:Y ATED BY: JANETTE HENDRICKSON Jr., DO PATIENT: ZAIN SMITH ACCT: [id number] UNIT: [id number] : 1945 LOC: ER ROOM / BED: / AGE / SEX: 79 / F ADM STATUS: REG ER SERVICE 1606 ORDERING PHYSICIAN: JUDI HIGGINBOTHAM MD PROCEDURE(s): CXRP - CHEST PORTABLE REASON: altered ORDER NUMBER(s): [id number], ACCESSION NUMBER(s): [id number] CHEST RADIOGRAPH Indication: altered Technique: Single frontal view of the chest was obtained Comparison: None FINDINGS: Lines and Tubes: None Lungs: No focal consolidation. Pleura: No effusion. No pneumothorax. Cardiomediastinal contours: Unremarkable. Uncoiling of the thoracic aorta. Bones: No acute osseous abnormality. IMPRESSION: 1. No acute cardiopulmonary disease. 2. Uncoiling of the thoracic aorta. HS:Y ATED BY: JANETTE HENDRICKSON Jr., DO DICTATED DATE/TIME: 06/21/24 174 Laboratory Results Test 06/24/24 04:37 06/23/24 06:51 06/22/24 20:46 06/22/24 05:50 Sodium Level 141 mmol/L (136-145) Potassium Level 3.7 mmol/L (3.5-5.1) Chloride Level 113 mmol/L (98-107) Carbon Dioxide Level 23 mmol/L (20-31) Anion Gap 5 (5-15) Blood Urea Nitrogen 5 mg/dL (9-23) Creatinine 0.65 mg/dL (0.550-1.02) Glomerular Filtration Rate Calc 90 mL/min (>90) BUN/Creatinine Ratio 7.7 (10.0-20.0) Serum Glucose 89 mg/dL (74-106) Calcium Level 8.7 mg/dL (8.7-10.4) White Blood Count 6.2 10^3/uL (4.4-10.8) Red Blood Count 4.35 10^6/uL (4.0-5.20) Hemoglobin 13.1 g/dL (12.2-16.2) Hematocrit 39.5 % (36.0-46.0) Mean Corpuscular Volume 91.0 fL (80.0-100.0) Mean Corpuscular Hemoglobin 30.0 pg (28.0-32.0) Mean Corpuscular Hemoglobin Concent 33.0 g/dL (32.0-36.0) Red Cell Distribution Width 14.9 % (11.8-14.3) Platelet Count 293 10^3/uL (140-450) Mean Platelet Volume 9.7 fL (6.9-10.8) Neutrophils (%) (Auto) 71.2 % (37.0-80.0) Lymphocytes (%) (Auto) 13.7 % (10.0-50.0) Monocytes (%) (Auto) 8.7 % (0.0-12.0) Eosinophils (%) (Auto) 4.6 % (0.0-7.0) Basophils (%) (Auto) 1.8 % (0.0-2.0) Neutrophils # (Auto) 4.4 10 ^3/uL (1.6-8.6) Lymphocytes # (Auto) 0.9 10 ^3/uL (0.4-5.4) Monocytes # (Auto) 0.5 10 ^3/uL (0-1.3) Eosinophils # (Auto) 0.3 10 ^3/uL (0-0.8) Basophils # (Auto) 0.1 10 ^3/uL (0-0.2) Nucleated Red Blood Cells 0.0 % Total Bilirubin 0.7 mg/dL (0.2-1.0) Aspartate Amino Transferase (AST) 11 U/L (13-40) Alanine Aminotransferase (ALT) < 9 U/L (7-40) Alkaline Phosphatase 86 U/L (46-116) Total Protein 6.1 g/dL (5.7-8.2) Albumin 3.7 g/dL (3.2-4.8) POC Glucose 91 mg/dl (70-106) Magnesium Level 2.1 mg/dL (1.6-2.6) Thyroid Stimulating Hormone (TSH) 1.42 uIU/mL (0.55-4.78) Test 06/21/24 16:04 06/21/24 00:00 Lactic Acid Level 0.8 mmol/L (0.4-2.0) Troponin I High Sensitivity 10 ng/L (</=34) Plasma/Serum Blood Alcohol < 3.0 mg/dL (<10) Urine Color Light-orange (Yellow) Urine Clarity Turbid (Clear) Urine pH 5.5 (5.0-9.0) Urine Specific [place] 1.024 (1.001-1.035) Urine Protein Trace (Negative) Urine Ketones 2+ (Negative) Urine Blood 1+ /uL (Negative) Urine Nitrite Negative (Negative) Urine Bilirubin Negative (Negative) Urine Urobilinogen 2 mg/dL (Negative) Urine Leukocyte Esterase 3+ /uL (Negative) Urine RBC 21 /hpf (0 - 4) Urine WBC 255 /hpf (0 - 5) Urine Squamous Epithelial Cells Mod /hpf (<5) Urine Bacteria Few /hpf (None Seen) Urine Hyaline Casts Few /lpf (0 - 2) Urine Mucus Few (None Seen) Urine Glucose Normal mg/dL (Normal) Other Laboratory Tests 06/24/24 04:37 06/23/24 06:51 Brief Hx & Hospital Course: Hospital course: Patient was altered at presentation. History was mainly from medical chart and EMS note. An attempt to reach family was unsuccessful. The patient is a 79-year-old female with is history of Alzheimer who presented to [facility] ED for evaluation of increased altered level of consciousness. Patient was seen on 06/20/2024 for UTI and discharge to [facility] ([facility]) on . Patient was brought back to the ED for increased level of confusion. Patient is confused and unable to answer any question on review of systems. Initial vitals showed HR: 72-40, BP: 114/67, on 2L of oxygen via the nasal canula. Initial lab data showed WBC 5.6, hgb: 12.9, platelets 290, sodium 148, potassium 4.3, BUN 16, creatinine 0.78, glucose 81, GFR 77, troponin 10, urinalysis positive for urinary tract infection. Head CT did not reveal any intracranial hemorrhage. Patient was admitted for further evaluation and medical management. Patient was managed for the UTI with antibiotics and also given adequate hydration. Patient confusion is likely secondary to dehydration given that her potassium level was elevated at the point of admission. On the 2nd day patient was doing much better patient was awake alert she was alert and oriented to his back to her baseline she was communicating very well however her electrolytes were not adequately corrected therefore we kept patient for one additional day to manage her electrolyte abnormality. Today, patient looks much better. Electrolytes are within normal limits and she is responding to conversation at her baseline. Patient is stable for discharge back to [facility]. Examination General Appearance:Alert, but not place HEENT: Atraumatic, PERRLA, EOMI, Mucous membrane moist/pink Respiratory: Clear to auscultation, Normal air movement Cardiovascular: Bradycardic, Normal S1, Normal S2, No murmurs, no chest wall tenderness Abdominal: NO distention, no tenderness, bowel sounds present, no scars noted Extremities: No clubbing, No cyanosis, No edema, Normal pulses, No tenderness/swelling Skin: No rashes, No breakdown, No significant lesion Neuro: Deferred Psych/Mental Status: Alzheimer Diagnoses Urinary tract infection Metabolic encephalopathy due to electrolyte derangement Dehydration Bradycardia Alzheimer's Hypernatremia Obesity Discharge plan Patient was discharge home on 06/21/2024 with Keflex 250 mg po qid. She can continue that medication Encourage oral hydration Follow up at the Discharge clinic in 7 days Continue care with the PCP Case and discharge plan discussed with Dr. Morgan Consults/Reason for consult Reason for Consultation:Bradycardia Condition at Discharge: Good Final Diagnosis/Problems List Urinary tract infection Metabolic encephalopathy Bradycardia Alzheimer's Hypernatremia obesity Discharge Disposition: Intermediate Facility Discharge Instruct/Medications Diet: Regular Activity: No Restrictions, As Tolerated Follow Up/Referral: 7 days Medications: keflex 500 mg bid 5 days Discharge Statement: "Patient was advised to return to the ER or call 911 if any headaches, dizziness, shortness of breath, chest pain, abdominal pain, bleeding, fevers, or worsening of medical condition. Patient was counseled about treatment plan, medications, possible side effects, patientverbalized understanding. All questions were answered to the best of my ability. This discharge took greater then 30 minutes in planning, reviewing documentation, counseling the patient, and discussing with other team members." ASSESSMENT ASSESSMENT Assessment Urinary tract infection Metabolic encephalopathy Bradycardia Alzheimer's Hypernatremia Date of Service: Jun 24, 2024 Billing Provider: IOANA MORGAN MD Common Visit Codes: 41629-WSM/OBS DISCH DAY >30min LIZZETTE ARIAS RESIDENT Jun 24, 2024 16:28 IOANA MORGAN MD Jun 25, 2024 19:26
[2024-06-24] MEDS ORDERED: CEPH250C PO (19:47)
== END 2024-06-24 23:15 | DRG 640 ==
LOC: ER 15:12 → EDBD 15:12 → TELE 06-22 03:22 → TELE-WESTW 06-22 21:48
PROVIDERS: ADMIT Internal Medicine Geriatric Medicine; ATTEND Internal Medicine Geriatric Medicine
DX: E87.0 Hyperosmolality and hypernatremia (principal); G93.41 Metabolic encephalopathy; N30.00 Acute cystitis without hematuria; E86.0 Dehydration; G30.9 Alzheimer's disease, unspecified; F02.80 Dementia in other diseases classified elsewhere, unspecified severity, without behavioral disturbance, psychotic disturbance, mood disturbance, and anxiety; R00.1 Bradycardia, unspecified; I10 Essential (primary) hypertension; E66.9 Obesity, unspecified; Z68.31 Body mass index [BMI] 31.0-31.9, adult; Z91.030 Bee allergy status
CPT/HCPCS: 36415; 70450; 71045; 80048; 80053; 80320; 81001; 82962; 83605; 83735; 84443; 84484; 85025; 87040; 87081; 87086; 93005; 93306; 97163; 99291; G0378